=== PATIENT | female | born 1970 | race Caucasian/White ===

== ENCOUNTER 2017-09-18 21:47 | Emergency (ER) | payer OTHER ==
[~2017-09-18] VITALS: Ht 160 cm; Wt 59.0 kg
[2017-09-18] MEDS ORDERED: LISINOPRIL10 MG PO (22:13)
[2017-09-18] MEDS ORDERED: SEROQUEL XR50 MG PO (22:13)
[2017-09-18 22:34] LABS: URINE BILIRUBIN NEGATIVE (Negative); URINE BLOOD NEGATIVE (Negative); URINE CLARITY CLEAR; URINE COLOR YELLOW; URINE GLUCOSE-RANDOM NEGATIVE (Negative); URINE KETONES TRACE (Negative); URINE PROTEIN NEGATIVE (Negative); URINE UROBILINOGEN 0.2 E.U./dl (0.2-1.0)
[2017-09-18 22:36] LABS: URINE LEUKOCYTES-REFLEX 2+ (Negative); URINE NITRITE-REFLEX POSITIVE (Negative)
[2017-09-18 22:40] LABS: BACTERIA-REFLEX >30 Many /HPF (None Seen); CASTS None Seen /LPF (None Seen); CRYSTALS None Seen /LPF (None Seen); MUCUS None Seen strn/LPF (None Seen); SQUAMOUS >10 Many /LPF (0-3)
[2017-09-18 22:41] LABS: URINE WBC-REFLEX >25 Many /HPF (0-5)
[2017-09-18 22:42] LABS: URINE RBC None Seen /HPF (0-2)
[2017-09-18] MEDS ORDERED: SEROQUEL 50 MG50 MG PO (22:50)
[2017-09-18] MEDS ORDERED: KEFLEX500 M1 PO (22:54)
[2017-09-18] MEDS ORDERED: FLAGYL500 MG PO (23:01)
[2017-09-18 23:09] VITALS: BP 112/47
== END 2017-09-18 23:10 | disposition home or self-care (01) ==
LOC: M.ERS 21:47
PROVIDERS: Physician Assistant
DX: N39.0 Urinary tract infection, site not specified (principal); F32.9 Major depressive disorder, single episode, unspecified; N76.0 Acute vaginitis; B96.89 Other specified bacterial agents as the cause of diseases classified elsewhere; Z76.0 Encounter for issue of repeat prescription; F17.210 Nicotine dependence, cigarettes, uncomplicated; Z88.6 Allergy status to analgesic agent